=== PATIENT | male | born 1950 | race Hispanic/Latino ===

== ENCOUNTER → 2024-02-08 | Outpatient (CLI) | payer MEDICARE | END | disposition home or self-care (01) | LOC: SHCH 14:31 | PROVIDERS: ATTEND Internal Medicine Cardiovascular Disease | DX: I65.23 Occlusion and stenosis of bilateral carotid arteries (principal); I10 Essential (primary) hypertension; I25.10 Atherosclerotic heart disease of native coronary artery without angina pectoris | CPT/HCPCS: 93880 ==

== ENCOUNTER 2025-02-25 07:20 | Day surgery (SDC) | payer MEDICARE ==
[2025-02-25] MEDS ORDERED: 0.9%NACL 1000ML 1,000 ML IV SCH (09:00)
[2025-02-25] MEDS ORDERED: IOHEXOL 350 MG/ML 100ML INFUS..BTL IV ONE (09:11)
[2025-02-25 10:26] VITALS: BP 164/86
[2025-02-25 14:00] VITALS: BP 177/75; PULSE 52; RESP 14; TEMP 97.6
[2025-02-25 15:05] VITALS: BP 171/79; PULSE 54; RESP 16; TEMP 97.5
--- NOTE | 2025-03-03 18:59 | CARDIOLOGY ---
RAD REPORT: [facility] CT ANGIO RADIOLOGY REPORT: CORONARY CT ANGIOGRAPHY DATE: Feb 25, 2025 QUALITY: Excellent CLINICAL HISTORY AND INDICATION: [ CABG] TECHNIQUE: After obtaining a preliminary carbon brush maker image, contrast imaging performed on an Aquillon [id number] scanner. A dedicated, limited window, coronary imaging protocol was used, with single breath-hold, retrospective ECG gating, and automated arrhythmia rejection. 100 cc of low osmolar contrast agent: Omnipaque 350 was delivered via a 18-gauge IV catheter in the right antecubital fossa, using a power injector and followed by 60 cc of normal saline bolus as a chaser. Collimated images were reformatted at 0.5 mm intervals, and sent to an offline independent workstation for interpretation, using 3D anatomic reconstructions: Curved multiplanar reconstructions, maximum intensity projections, and multiplanar imaging. No metoprolol was administered prior to scanning due to low baseline heart rate. 0.8 mg SL nitroglycerin was given. CORONARY ARTERY DESCRIPTIONS: The coronary arteries arise in normal position. Left main coronary artery: Normal caliber, short vessel that bifurcates into the LAD and LCx. Severe distal left main stenosis. Left anterior descending coronary artery: Normal caliber vessel and gives rise to diagonal and septal branches. There is mixed plaque in the ostial to mid segments with 80-90% stenosis. The LAD is occluded in the mid to distal segment. D1 is sub-totally occluded. Left circumflex coronary artery: Normal caliber, dominant and gives rise to a large OM branch. Drug eluting stents in the proximal LCx and OM1. Right coronary artery: Small, non-dominant vessel. No stenosis. Patent RODRÍGUEZ to LAD. Patent SVG to L PDA. Patent SVG to L PL. The distal anastomosis site of the SVG to Diagonal branch is sub-totally occluded. Thoracic Aorta: Normal diameter. Chana Salvador MD Cardiovascular Disease [facility] CHANA SALVADOR MD Mar 03, 2025 18:59
== END 2025-02-25 15:12 | disposition home or self-care (01) ==
LOC: RAH 07:20 → DAH 07:20 → RAH 15:12
PROVIDERS: ATTEND Internal Medicine Cardiovascular Disease
DX: R94.39 Abnormal result of other cardiovascular function study (principal); I25.10 Atherosclerotic heart disease of native coronary artery without angina pectoris; Z95.1 Presence of aortocoronary bypass graft
CPT/HCPCS: 75574; A4223 ×3; Q9967; A4215; A4222; A4221; A4663; A4216; A4606; 96360; 96361